=== PATIENT | male | born 1965 | race Caucasian/White ===

== ENCOUNTER 2018-06-03 17:06 | Emergency (ER) | payer OTHER ==
[~2018-06-03 17:06] MED LIST: EPINEPHrine 10 ML SYRINGE (0.1 MG/ML) ONE; SODIUM BICARB 8.4% 50 ML SYR (1 MEQ/ML) ONE
[2018-06-03 17:39] VITALS: PULSE 0; RESP 0
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
== END 2018-06-03 23:00 | disposition expired ==
LOC: EC 17:06
DX: I46.9 Cardiac arrest, cause unspecified (principal); I87.2 Venous insufficiency (chronic) (peripheral); R14.0 Abdominal distension (gaseous); R32 Unspecified urinary incontinence; R41.82 Altered mental status, unspecified; F17.200 Nicotine dependence, unspecified, uncomplicated; Z95.818 Presence of other cardiac implants and grafts; Z87.828 Personal history of other (healed) physical injury and trauma; Z90.5 Acquired absence of kidney; Z90.81 Acquired absence of spleen; Z98.890 Other specified postprocedural states
CPT/HCPCS: 99291; 92950; 31500; J0171